=== PATIENT | male | born 1980 | race Caucasian/White ===

== ENCOUNTER 2021-10-21 08:10 | Outpatient (CLI) | payer BC | END 2021-10-21 08:11 | disposition home or self-care (01) | LOC: SCSRAD 08:10 | PROVIDERS: ATTEND Urology | DX: Z09 Encounter for follow-up examination after completed treatment for conditions other than malignant neoplasm (principal); Z87.442 Personal history of urinary calculi | CPT/HCPCS: 74018 ==

== ENCOUNTER 2024-01-19 10:47 | Outpatient (CLI) | payer BC | END 2024-01-19 10:48 | disposition home or self-care (01) | LOC: SCSMRI 10:47 | PROVIDERS: ATTEND Orthopaedic Surgery | DX: M67.432 Ganglion, left wrist (principal); S66.812A Strain of other specified muscles, fascia and tendons at wrist and hand level, left hand, initial encounter ==

== ENCOUNTER 2024-02-26 08:24 | Outpatient (CLI) | payer BC ==
[2024-02-26 09:27] LABS: #Basophils 0.05 10x3/uL (0.0-0.2); %Basophils 1.1 % (0.0-1.0); %Eosinophils 1.6 % (0.0-10.0); %Lymphocytes 19.2 % (21.0-51.0); %Monocytes 10.3 % (0.0-10.0); %Neutrophils 67.6 % (42.0-75.0); Hematocrit 47.9 % (42.0-52.0); Hemoglobin 16.6 g/dL (14.0-18.0); Mean Corpuscular HGB CONC 34.7 g/dL (32.0-36.0); Mean Corpuscular Hemoglobin 33.5 pg (27.0-31.0); Mean Corpuscular Volume 96.8 fL (78.0-98.0); Mean Platelet Volume 10.3 fL (7.4-10.4); Platelet Count 289 10x3/uL (130-400); RBC Distribution Width 13.4 % (11.5-14.5); Red Blood Cell (RBC) Count 4.95 mill/uL (4.70-6.10)
== END 2024-02-26 08:25 | disposition home or self-care (01) ==
LOC: LABBT 08:24
PROVIDERS: ATTEND Orthopaedic Surgery
DX: Z01.812 Encounter for preprocedural laboratory examination (principal); M67.432 Ganglion, left wrist
CPT/HCPCS: 85025

== ENCOUNTER 2024-02-29 05:38 | Day surgery (SDC) | payer BC ==
[2024-02-26 08:44] VITALS: BMI 25.5
[2024-02-29] MEDS ORDERED: Bupivacaine PF 0.5% 30 ML VIAL ONE (06:28)
[2024-02-29] MEDS ORDERED: CEFAZOLIN 2 GM VIAL ONE (06:31)
[2024-02-29] MEDS ORDERED: fentaNYL PF 100 MCG/2 ML SYRINGE ONE (06:59)
[2024-02-29] MEDS ORDERED: PROPOFOL 20 ML ONE (06:59)
[2024-02-29] MEDS ORDERED: Ondansetron PF 4 MG/2 ML Vial ONE (07:00)
[2024-02-29] MEDS ORDERED: Ketorolac Tromethamine 30 MG (1 mL) VIAL ONE (07:00)
[2024-02-29] MEDS ORDERED: Lidocaine 1% PF 5 ML VIAL ONE (07:00)
[2024-02-29] MEDS ORDERED: ePHEDrine Sulfate 50 MG/10 ML VIAL ONE (07:38)
== END 2024-02-29 10:44 | disposition home or self-care (01) ==
LOC: SDC 05:38
PROVIDERS: ATTEND Orthopaedic Surgery
PROC: 0RBP0ZZ Excision of Left Wrist Joint, Open Approach (ICD-10-PCS; principal; 2024-02-29)
DX: M67.432 Ganglion, left wrist (principal)
CPT/HCPCS: 88304; A6223; J0665; J1885; J2405; J2704